=== PATIENT | female | born 1995 | race African-American/Black ===

== ENCOUNTER 2019-12-12 06:04 | Inpatient (IN) ==
[2019-12-12] MEDS ORDERED: OXYTOCIN/LR 20 UNIT/1,000 ML BAG IV PRN (06:13)
[2019-12-12] MEDS ORDERED: MEPERIDINE 50 MG/1 ML VIAL IV PRN (06:13)
[2019-12-12] MEDS ORDERED: ONDANSETRON 4 MG/2 ML VIAL IV PRN (06:13)
[2019-12-12] MEDS ORDERED: BUTORPHANOL 2 MG/ML VIAL IV PRN (06:13)
[2019-12-12] MEDS: LACTATED RINGERS 1,000 ML IV SCH ×2 (06:33→15:40)
[2019-12-12 06:37] LABS: Basophils % 0.3 % (0.0-0.8); Eosinophils # 0.1 10*3/uL (0.0-0.87); Eosinophils % 0.7 % (0.00-10.9); Hematocrit 38.3 VOL% (35.7-47.0); Hemoglobin 13.5 GM/DL (12.0-16.0); Immature Granulocytes % 1.5 %; Immature Granulocytes Absolute 0.16 #; Lymphocytes # 2.2 10*3/uL (1.4-4.0); Lymphocytes % 20.6 % (21.3-54.2); Mean Corpuscular HGB Conc 35.2 GM/DL (32-36); Mean Corpuscular Volume 88.5 FL (87-102); Mean Platelet Volume 11.2 FL (9.6-12.0); Neutrophils % 70.9 % (38.7-73.9); Platelet Count 137 T/CUMM (130-400); Red Blood Count 4.33 MC/CUMM (3.8-5.5); Red Cell Distribution Width 13.4 % (9.3-17.3); White Blood Count 10.8 T/CUMM (4-12)
[2019-12-12 06:49] LABS: Amorphous Crystals,Urine Occasional /HPF (Few); Apearance,Urine CLEAR (Clear); Bacteria,Urine Moderate /HPF (Few); Bilirubin,Urine Negative (Negative); Blood, Urine Negative (Negative); Glucose,Urine (UA) Negative (Negative); Ketones,Urine 5 mg/dL (Negative); Mucus,Urine Occasional /LPF (Occasional); Nitrite,Urine Negative (Negative); Protein,Urine Negative; RBC,Urine 1 /HPF (0-4); Squamous Epithelial Cell,Urine Occasional /HPF (0-10); Urine Color Yellow (Yellow); Urine Specific Gravity 1.015 (1.001-1.035); WBC,Urine 2 /HPF (0-6)
[2019-12-12 06:56] LABS: Bilirubin,Total 0.4 MG/DL (0.2-1.0); Calcium 9.3 MG/DL (8.5-10.1); Osmolality,Calculated 271.7 MOS/KG (273-304); Total Protein 6.6 G/DL (6.4-8.3)
[2019-12-13] MEDS: LACTATED RINGERS 1,000 ML IV SCH ×2 (05:14)
[2019-12-13] MEDS ORDERED: FAMOTIDINE 20 MG/2 ML VIAL IV ONE (07:54)
[2019-12-13] MEDS ORDERED: diphenhydrAMINE 50 MG/1 ML VIAL IV PRN ×2 (07:54)
[2019-12-13] MEDS ORDERED: PROMETHAZINE 25 MG/1 ML VIAL IM ONE (07:54)
[2019-12-13] MEDS ORDERED: ePHEDrine 50 MG/ML AMP IV PRN (07:54)
[2019-12-13] MEDS ORDERED: ONDANSETRON 4 MG/2 ML VIAL IV ONE (07:54)
[2019-12-13] MEDS ORDERED: CITRIC ACID/SODIUM CITRATE 30 ML UDCUP PO ONE (07:54)
[2019-12-13] MEDS ORDERED: hydrOXYzine HCL 25 MG/1 ML VIAL IM PRN (07:54)
[2019-12-13] MEDS ORDERED: ceFAZolin 2,000 MG in PREMIX 1 EACH IV ONE (08:34)
[2019-12-13] MEDS ORDERED: OXYTOCIN/LR 20 UNIT/1,000 ML BAG IV ONE ×2 (09:00→09:59)
[2019-12-13] MEDS ORDERED: METHYLERGONOVINE 0.2 MG/1 ML AMP ONE (09:32)
[2019-12-13] MEDS ORDERED: ONDANSETRON 4 MG/2 ML VIAL IV PRN (09:59)
[2019-12-13] MEDS ORDERED: ACETAMINOPHEN 325 MG TABLET PO PRN (09:59)
[2019-12-13] MEDS ORDERED: RHO(D) IMMUNE GLOBULIN 300 MCG SYRINGE IM ONE (09:59)
[2019-12-13] MEDS ORDERED: LACTATED RINGERS 1,000 ML IV SCH (10:00)
[2019-12-13] MEDS ORDERED: ceFAZolin 1,000 MG in SYRINGE 1 EACH IV SCH (10:00)
[2019-12-13 10:16] LABS: Apearance,Urine CLEAR (Clear); Bacteria,Urine Occasional /HPF (Few); Bilirubin,Urine Negative (Negative); Blood, Urine Negative (Negative); Glucose,Urine (UA) Negative (Negative); Ketones,Urine 80 mg/dL (Negative); Mucus,Urine Occasional /LPF (Occasional); Nitrite,Urine Negative (Negative); Protein,Urine Negative; RBC,Urine 1 /HPF (0-4); Squamous Epithelial Cell,Urine Occasional /HPF (0-10); Urine Color Yellow (Yellow); Urine Specific Gravity 1.016 (1.001-1.035); Urine Urobilinogen < 2.0 EU/DL (0.2-1.0); WBC,Urine 2 /HPF (0-6)
[2019-12-13] MEDS ORDERED: fentaNYL 100 MCG/2 ML VIAL ONE (10:22)
[2019-12-13] MEDS ORDERED: MORPHINE 10 MG/10 ML VIAL ONE (10:23)
[2019-12-13] MEDS ORDERED: BUPIVACAINE 0.25% 50 ML VIAL ONE (10:24)
[2019-12-13] MEDS ORDERED: PHENYLEPHRINE 1 MG/10 ML SYRINGE IV ONE (10:24)
[2019-12-13] MEDS ORDERED: BUPIVACAINE SPINAL 0.75% 2 ML AMP SPINAL ONE (10:25)
[2019-12-13] MEDS ORDERED: BUPIVACAINE MPF 0.25% 30 ML VIAL ONE (11:50)
[2019-12-13] MEDS: ceFAZolin 1,000 MG in SYRINGE 1 EACH IV SCH (18:31)
[2019-12-13] MEDS: oxyCODONE/ACETAMINOPHEN 5-325 MG TABLET PO PRN (18:36)
[2019-12-13] MEDS: DOCUSATE SODIUM 100 MG CAPSULE PO SCH (21:16)
[2019-12-13] MEDS: IBUPROFEN 800 MG TABLET PO PRN (22:10)
[2019-12-14] MEDS: oxyCODONE/ACETAMINOPHEN 5-325 MG TABLET PO PRN ×4 (00:06→20:55)
[2019-12-14] MEDS: LACTATED RINGERS 1,000 ML IV SCH (00:08)
[2019-12-14] MEDS: ceFAZolin 1,000 MG in SYRINGE 1 EACH IV SCH (02:11)
[2019-12-14] MEDS: IBUPROFEN 800 MG TABLET PO PRN ×2 (05:23→17:49)
[2019-12-14 06:40] LABS: Basophils % 0.1 % (0.0-0.8); Eosinophils % 0.2 % (0.00-10.9); Hematocrit 31.3 VOL% (35.7-47.0); Hemoglobin 11.5 GM/DL (12.0-16.0); Immature Granulocytes Absolute 0.15 #; Lymphocytes # 1.8 10*3/uL (1.4-4.0); Lymphocytes % 11.5 % (21.3-54.2); Mean Corpuscular HGB Conc 36.7 GM/DL (32-36); Mean Corpuscular Volume 86.2 FL (87-102); Mean Platelet Volume 11.2 FL (9.6-12.0); Monocytes % 8.3 % (1.7-12.7); Neutrophils % 78.9 % (38.7-73.9); Platelet Count 125 T/CUMM (130-400); Red Blood Count 3.63 MC/CUMM (3.8-5.5); Red Cell Distribution Width 13.7 % (9.3-17.3); White Blood Count 15.2 T/CUMM (4-12)
[2019-12-14] MEDS: MULTIVITAMIN (PRENATAL) TABLET PO SCH (10:56)
[2019-12-14] MEDS: DOCUSATE SODIUM 100 MG CAPSULE PO SCH ×2 (10:56→20:55)
[2019-12-14] MEDS: MAGNESIUM HYDROXIDE SUSP 30 ML UDCUP PO PRN (20:55)
[2019-12-15] MEDS: oxyCODONE/ACETAMINOPHEN 5-325 MG TABLET PO PRN ×3 (05:44→18:33)
[2019-12-15] MEDS: DOCUSATE SODIUM 100 MG CAPSULE PO SCH ×2 (08:57→21:11)
[2019-12-15] MEDS: MULTIVITAMIN (PRENATAL) TABLET PO SCH (08:57)
[2019-12-15] MEDS: SIMETHICONE CHEW 80 MG TABLET PO PRN ×2 (08:58→21:11)
[2019-12-15] MEDS: MAGNESIUM HYDROXIDE SUSP 30 ML UDCUP PO PRN ×2 (08:58→21:11)
[2019-12-15] MEDS: IBUPROFEN 800 MG TABLET PO PRN (23:36)
[2019-12-16] MEDS: IBUPROFEN 800 MG TABLET PO PRN (08:39)
[2019-12-16] MEDS: oxyCODONE/ACETAMINOPHEN 5-325 MG TABLET PO PRN (08:41)
[2019-12-16 09:04] VITALS: BP 104/52
== END 2019-12-16 12:15 | disposition home or self-care (01) | DRG 788 ==
LOC: N.LDOUT 06:04 → N.LD 06:05 → N.OB 12-13 13:34
PROVIDERS: ADMIT Obstetrics & Gynecology; ATTEND Obstetrics & Gynecology
PROC: LDCSECT (ICD-10-PCS; 2019-12-13 08:30)